=== PATIENT | male | born 1990 | race Caucasian/White ===

== ENCOUNTER 2018-10-25 05:14 | Day surgery (SDC) | payer MEDICAID ==
[~2018-10-25] VITALS: Ht 177.8 cm; Wt 166.0 kg
[2018-10-25 05:37] LABS: BASOPHILS 0.3 % (0-2); EOSINOPHILS 1.7 % (0-7); HEMATOCRIT 42.4 % (42.0-54.0); HEMOGLOBIN 14.7 g/dL (13.5-17.5); IMMATURE GRANULOCYTES 0.2 % (0-5); LYMPHOCYTES 28.5 % (15-50); MCH 30.5 pg (26.0-34.0); MCHC 34.7 g/dL (31.0-37.0); MEAN PLATELET VOLUME 9.7 fL (7.4-10.4); MONOCYTES 7.1 % (2-11); NEUTROPHILS 62.2 % (40-80); PLATELET COUNT 204 10x3/uL (130-400); RBC 4.82 10x6/uL (4.20-6.10); RDW 13.1 % (11.5-14.5); WBC 9.6 10x3/uL (4.8-10.8)
[2018-10-25 05:57] LABS: CALC OSMOLALITY 272 mosm/kg (275-300); CALCIUM 8.6 mg/dL (8.5-10.1); CARBON DIOXIDE 29.8 mmol/L (21.0-32.0); CHLORIDE - SERUM 102 mmol/L (98-107); CREATININE - SERUM 1.2 mg/dL (0.6-1.3); GLUCOSE 87 mg/dL (74-106); POTASSIUM - SERUM 3.9 mmol/L (3.5-5.1); SODIUM 137 mmol/L (136-145); UREA NITROGEN 12 mg/dL (7-18); eGFR NON AFRICAN AMERICAN 76 mL/min (90-120)
[2018-10-25 07:37] VITALS: BP 126/91; Ht 177.8 cm; Wt 166.0 kg
[2018-10-25] MEDS ORDERED: HYDROCODON-ACE1 EA10 PO (09:14)
--- NOTE | 2018-10-25 09:29 | NUR ---
ANAL DRSG CDI, PACKING IN PLACE. NO S/S OF BLEEDING OR DRAINAGE NOTED AT THIS TIME.
--- NOTE | 2018-10-25 15:07 | NUR ---
PT BEGAN RECOVERY SEDATED AND AROUSED BY TACTILE STIMULI. HE AWOKE, HE COMPLAINED OF PAIN 10/10. RX'D WITH NORCO. AN HOUR LATER, STILL C/O PAIN 10/10. ADMINISTERED DILAUDED PER ORDER. PAIN IMPROVED TO 7/10 AND PT WAS DISCHARGED HOME VIA . DISCHARGE INSTRUCTIONS GIVEN.
--- NOTE | 2018-10-26 12:15 | OP ---
PATIENT NAME: TRISTAN MUÑIZ MEDICAL RECORD: [id number] :88 LOCATION:[facility] ADMISSION DATE: SURGEON: WILDER THAYER MD DATE OF OPERATION: 10/25/2018 PREOPERATIVE DIAGNOSES: 1. Mixed internal and external hemorrhoids. 2. Morbid obesity with a body mass index of 53. 3. Tobacco dependence syndrome. POSTOPERATIVE DIAGNOSES: 1. Mixed internal and external hemorrhoids. 2. Morbid obesity with a body mass index of 53. 3. Tobacco dependence syndrome. PROCEDURE: Two-column hemorrhoidectomy. SURGEON: Wilder Thayer MD REPORT OF PROCEDURE: The patient was placed in lithotomy position and the perianal region was prepped and draped in sterile fashion. The patient had left lateral and right posterior hemorrhoidal columns, which were quite large and engorged. These were mixed hemorrhoidal tissues with mainly in external component. We approached the right posterior hemorrhoid first and a 2-0 chromic was placed at the base of the hemorrhoid and the distal rectum. We then transected the anoderm and rectal tissue overlying the hemorrhoid and excised the hemorrhoid down to the sphincteric musculature. Once this hemorrhoid was removed, then the 2-0 chromic, which had been placed earlier was run in a locking fashion to close up the hemorrhoidal defect. The wound was then irrigated out with normal saline. We then approached the left lateral hemorrhoid. A 2-0 chromic was placed at the base of this hemorrhoid and then the distal rectum and again the hemorrhoidal tissue was excised using electrocautery down to the sphincteric musculature. The large collection of hemorrhoidal tissue was removed in total. Any bleeding was treated with electrocautery. We then used the previously placed suture to close the opening in a running-locked fashion. At the conclusion of this, there was a little bit of oozing from the suture sites, but otherwise no evidence of any surgical bleeding. The wounds were infused with a total of 10 mL of 0.25% Marcaine with epinephrine and then irrigated out with normal saline. A piece of Gelfoam dipped in Americaine was placed into the rectum. COMPLICATIONS: None. CONDITION: Stable. ANESTHESIA: General endotracheal and local. BLOOD LOSS: 50 mL. TRANSINT:[id number] Voice Confirmation ID: [id number] DOCUMENT ID: [id number] OPERATIVE REPORT [id number] COOK,WILDER DIAZ MD at 1215 CC: ALFREDA MOONEY [id number] DICTATION DATE: 10/25/18921 SOLE LEVELER: 10/25/18 0953 DEP SD 10/25/18 [facility] [address] [place] [place] [address]
== END 2018-10-25 14:20 | disposition home or self-care (01) ==
LOC: D.OPS 05:14 → D.PAN 08:00 → D.OPS 14:20
PROVIDERS: ATTEND Surgery
DX: K64.8 Other hemorrhoids (principal); K64.4 Residual hemorrhoidal skin tags; E66.01 Morbid (severe) obesity due to excess calories; Z68.43 Body mass index [BMI] 50.0-59.9, adult; F17.200 Nicotine dependence, unspecified, uncomplicated; Z01.812 Encounter for preprocedural laboratory examination